=== PATIENT | female | born 1940 | race Caucasian/White ===

== ENCOUNTER 2018-02-21 19:58 | Inpatient (IN) | payer MEDICARE ==
[~2018-02-21] VITALS: Ht 152.4 cm; Wt 52.2 kg
--- NOTE | ~2018-02-21 | OP ---
PATIENT NAME: ERICA TYLER MEDICAL RECORD: [id number] :42 LOCATION:[id number] ADMISSION DATE:02/21/18 SURGEON: MARGA LOCK MD DATE OF OPERATION: 02/25/2018 PREOPERATIVE DIAGNOSIS: Gallstone pancreatitis. POSTOPERATIVE DIAGNOSES: 1. Gallstone pancreatitis with apparent filling defect in the distal common bile duct, likely a common bile duct stone. However, this cleared during the cholangiogram. 2. Hepatomegaly. PROCEDURE: 1. Laparoscopic cholecystectomy. 2. Intraoperative cholangiography without immediate surgeon interpretation. 3. A 14-gauge core needle liver biopsy. SURGEON: Marga Lock MD SENIOR STORAGE ADMINISTRATOR: None. BLOOD LOSS: Minimal. ANESTHESIA: General. COMPLICATIONS: None. The risks, possible complications, and alternatives to the procedure were explained to the patient. She elects to proceed. The discussion specifically included, but was not limited to, bleeding requiring an emergency reoperation, infection, intestinal injury as well as common bile duct injury. The radiologist called me with the cholangiogram report. There was an apparent distal common bile duct filling defect initially; however, with extra pressure applied during the cholangiogram this appeared to pop into the duodenum and then there was filling of the duodenum. I contacted Dr. Mera and it appears that an ERCP will not be indicated. The risks, possible complications, and alternatives to the procedure were explained to the patient. She elected to proceed. OPERATIVE COURSE: The patient was conveyed to the operating room electively on 02/25/2018. General anesthesia was induced by the anesthesia staff. The abdomen was sterilely prepped and draped. A small skin froy was accomplished in the left upper quadrant. A Veress needle was inserted through the skin froy into the peritoneal cavity. CO2 insufflation was begun. Once a sufficient pneumoperitoneum had been achieved, a 5-mm trocar was inserted through an incision in the right upper quadrant. Under direct internal vision utilizing a television camera, a 12-mm trocar was inserted through an incision at the umbilicus. Two more trocars were inserted. A 5-mm trocar was inserted in the epigastrium. Another 5-mm trocar was inserted far laterally in the right upper quadrant. During insertion of the Veress needle and all trocars, there appeared OPERATIVE REPORT [id number] ERICA TYLER to have been no injury to the bowels, any intraperitoneal or retroperitoneal structures. The indication for the liver biopsy was hepatomegaly. Under laparoscopic guidance, I percutaneously accessed the right upper quadrant utilizing an 14-gauge core needle liver biopsy device. Cores were obtained over the convexity of the liver. The biopsy sites were made hemostatic with electrocautery. I then advanced the cholangiogram trocar. I punctured the fundus of the gallbladder. I aspirated bile. I then injected dye. Static fluoroscopic images were obtained. These cholangiographic images are sent to the radiologist for interpretation. I withdrew the cholangiogram trocar. The gallbladder was grasped and retracted cephalad. The infundibulum was grasped and retracted laterally. Critical view of the triangle of Calot was visualized. Blunt dissection was begun on the triangle of Calot. One cystic artery and one cystic duct were identified. These were clipped multiply and divided between clips. The gallbladder was then excised from its bed and the liver. It was placed within an Endobag retrieval device and was withdrawn through the umbilical fascia defect. The 12-mm trocars were placed and the abdomen reinsufflated. I irrigated and aspirated in the right upper quadrant. There was no bleeding even at low pressure of 8. The Shakir-Lizeth suture closure device and 0 Vicryl sutures were used to close the umbilical fascia. All the trocars were removed and the abdomen desufflated. The incision at the umbilicus was closed with interrupted 4-0 Vicryl Rapide sutures. The other skin incisions were closed with interrupted intracuticular 3-0 Vicryls. Benzoin and Steri-Strips were applied. The patient was then extubated and conveyed to post-anesthesia care unit where she was in stable condition. TRANSINT:[id number] Voice Confirmation ID: [id number] DOCUMENT ID: [id number] MARGA LOCK MD at 1240 CC: TRISH RO MD, MAGDALENA HEAD MD and KEVIN MERA DO [id number] DICTATION DATE: 02/25/18 1021 TECHNICAL TRAINING COORDINATOR: 02/25/18 1155 DIS IN 02/26/18 [id number] [place] [address]
[2018-02-21] MEDS ORDERED: TRIAMTERENE-HCT1 TA1 PO (20:11)
[2018-02-21] MEDS ORDERED: PRILOSEC2.5 MG PO (20:11)
[2018-02-21] MEDS ORDERED: AMITRIPTYLINE100 MG PO (20:12)
[2018-02-21] MEDS ORDERED: VALIUM5 MG PO (20:12)
[2018-02-21] MEDS ORDERED: ED-SPAZ0.125 MG PO (20:13)
[2018-02-21] MEDS ORDERED: MULTIPLE VITAMI1 TA1 PO (20:13)
[2018-02-21] MEDS ORDERED: REQUIP0.5 MG PO (20:14)
[2018-02-21] MEDS ORDERED: COMPAZINE5 MG PO (20:14)
[2018-02-21] MEDS ORDERED: COLACE100 MG PO (20:15)
[2018-02-21] MEDS ORDERED: HYDROCODONE-APA1 TAB PO (20:15)
[2018-02-21 22:38] VITALS: BP 99/66
[2018-02-21 22:52] LABS: BASOPHILS 0.1 % (0-2); EOSINOPHILS 0 % (0-7); HEMATOCRIT 37.2 % (36.0-48.0); HEMOGLOBIN 12.8 g/dL (12-16); IMMATURE GRANULOCYTES 0.2 % (0-5); LYMPHOCYTES 6.7 % (15-50); MCH 31.9 pg (26.0-34.0); MCHC 34.4 g/dL (31.0-37.0); MCV 92.8 fL (80.0-100.0); MEAN PLATELET VOLUME 10.4 fL (7.4-10.4); MONOCYTES 6.1 % (2-11); NEUTROPHILS 86.9 % (40-80); PLATELET COUNT 230 10x3/uL (130-400); RBC 4.01 10x6/uL (4.00-5.40); RDW 13.3 % (11.5-14.5); WBC 12.7 10x3/uL (4.8-10.8)
[2018-02-21 22:52] LABS: APPEARANCE CLEAR (CLEAR); COLOR DK YELLOW (YELLOW); SPECIFIC GRAVITY 1.015 (1.005-1.020)
[2018-02-21 22:53] LABS: BILIRUBIN NEGATIVE (NEGATIVE); GLUCOSE NEGATIVE (NEGATIVE); KETONE NEGATIVE (NEGATIVE); NITRITE NEGATIVE (NEGATIVE); PROTEIN NEGATIVE (NEGATIVE)
[2018-02-21 23:04] LABS: ALBUMIN 2.9 g/dL (3.4-5.0); ANION GAP 10.8 mmol/L (8-16); BILIRUBIN - TOTAL 2.96 mg/dL (0.2-1.3); CALCIUM 8.5 mg/dL (8.5-10.1); CARBON DIOXIDE 29.9 mmol/L (21.0-32.0); CREATININE - SERUM 0.8 mg/dL (0.6-1.3); POTASSIUM - SERUM 3.7 mmol/L (3.5-5.1); PROTEIN - SERUM 6.2 g/dL (6.4-8.2)
[2018-02-22 03:10] VITALS: BP 95/48; BMI 22.5
[2018-02-22 04:00] VITALS: BP 92/56
[2018-02-22 07:45] VITALS: BP 98/53
[2018-02-22 10:49] VITALS: Ht 152.4 cm; Wt 52.2 kg
[2018-02-22 11:26] VITALS: BP 110/62
[2018-02-22 15:06] VITALS: BP 107/59
[2018-02-22 20:08] VITALS: BP 110/65
[2018-02-23 02:34] VITALS: BP 134/75
[2018-02-23 05:55] LABS: BASOPHILS 0.2 % (0-2); EOSINOPHILS 0.8 % (0-7); HEMATOCRIT 32.9 % (36.0-48.0); HEMOGLOBIN 11.2 g/dL (12-16); IMMATURE GRANULOCYTES 0.2 % (0-5); LYMPHOCYTES 25.4 % (15-50); MCH 31.5 pg (26.0-34.0); MCV 92.4 fL (80.0-100.0); MEAN PLATELET VOLUME 10.5 fL (7.4-10.4); MONOCYTES 8.5 % (2-11); NEUTROPHILS 64.9 % (40-80); RBC 3.56 10x6/uL (4.00-5.40); RDW 13.7 % (11.5-14.5)
[2018-02-23 06:21] LABS: ALBUMIN 2.3 g/dL (3.4-5.0); ALKALINE PHOSPHATASE 104 U/L (46-116); CALCIUM 7.9 mg/dL (8.5-10.1); CARBON DIOXIDE 27.5 mmol/L (21.0-32.0); CHLORIDE - SERUM 110 mmol/L (98-107); CREATININE - SERUM 0.6 mg/dL (0.6-1.3); GLUCOSE 123 mg/dL (74-106); LIPASE 99 U/L (73-393); PROTEIN - SERUM 5.3 g/dL (6.4-8.2); SODIUM 143 mmol/L (136-145); eGFR NON AFRICAN AMERICAN > 90 mL/min (90-120)
[2018-02-23 06:25] LABS: CALC OSMOLALITY 283 mosm/kg (275-300); POTASSIUM - SERUM 3.1 mmol/L (3.5-5.1); UREA NITROGEN 8 mg/dL (7-18)
[2018-02-23 06:26] LABS: ALT (SGPT) 135 U/L (10-68)
[2018-02-23 06:28] VITALS: BP 149/83
[2018-02-23 06:32] LABS: PLATELET COUNT 177 10x3/uL (130-400); WBC 4.8 10x3/uL (4.8-10.8)
[2018-02-23] MEDS ORDERED: NEURONTIN 300300 MG PO (08:28)
[2018-02-23 08:32] VITALS: BP 142/73
[2018-02-23 11:30] VITALS: BP 131/73
[2018-02-23 12:08] LABS: MAGNESIUM - SERUM 1.7 mg/dL (1.8-2.4)
[2018-02-23 16:51] VITALS: BP 135/74
[2018-02-23 19:42] VITALS: BP 134/79
[2018-02-24 00:54] VITALS: BP 128/80
[2018-02-24 04:00] VITALS: BP 128/79
[2018-02-24 05:30] LABS: BASOPHILS 0.5 % (0-2); EOSINOPHILS 1.6 % (0-7); HEMATOCRIT 32.5 % (36.0-48.0); HEMOGLOBIN 11.1 g/dL (12-16); IMMATURE GRANULOCYTES 0.3 % (0-5); LYMPHOCYTES 22.9 % (15-50); MCH 31.4 pg (26.0-34.0); MCHC 34.2 g/dL (31.0-37.0); MCV 92.1 fL (80.0-100.0); MEAN PLATELET VOLUME 10.8 fL (7.4-10.4); MONOCYTES 8.2 % (2-11); NEUTROPHILS 66.5 % (40-80); PLATELET COUNT 198 10x3/uL (130-400); RBC 3.53 10x6/uL (4.00-5.40); RDW 14.1 % (11.5-14.5)
[2018-02-24 05:31] LABS: WBC 6.5 10x3/uL (4.8-10.8)
[2018-02-24 06:00] LABS: ALBUMIN 2.3 g/dL (3.4-5.0); ALKALINE PHOSPHATASE 103 U/L (46-116); ALT (SGPT) 95 U/L (10-68); BILIRUBIN - TOTAL 0.99 mg/dL (0.2-1.3); CALC OSMOLALITY 282 mosm/kg (275-300); CALCIUM 7.8 mg/dL (8.5-10.1); CARBON DIOXIDE 24.4 mmol/L (21.0-32.0); CHLORIDE - SERUM 110 mmol/L (98-107); CREATININE - SERUM 0.6 mg/dL (0.6-1.3); GLUCOSE 108 mg/dL (74-106); LIPASE 120 U/L (73-393); POTASSIUM - SERUM 3.4 mmol/L (3.5-5.1); PROTEIN - SERUM 5.4 g/dL (6.4-8.2); SODIUM 142 mmol/L (136-145); UREA NITROGEN 9 mg/dL (7-18); eGFR NON AFRICAN AMERICAN > 90 mL/min (90-120)
[2018-02-24 08:45] VITALS: BP 132/79
[2018-02-24 12:36] VITALS: BP 139/82
[2018-02-24 16:36] VITALS: BP 134/74
[2018-02-24 20:23] VITALS: BP 121/70
[2018-02-25 04:00] VITALS: BP 126/66
[2018-02-25 07:26] LABS: BASOPHILS 0.3 % (0-2); EOSINOPHILS 2.1 % (0-7); HEMATOCRIT 33.6 % (36.0-48.0); HEMOGLOBIN 11.4 g/dL (12-16); IMMATURE GRANULOCYTES 0.2 % (0-5); LYMPHOCYTES 24.5 % (15-50); MCH 31.4 pg (26.0-34.0); MCHC 33.9 g/dL (31.0-37.0); MCV 92.6 fL (80.0-100.0); MEAN PLATELET VOLUME 10.9 fL (7.4-10.4); MONOCYTES 9.2 % (2-11); NEUTROPHILS 63.7 % (40-80); PLATELET COUNT 235 10x3/uL (130-400); RBC 3.63 10x6/uL (4.00-5.40); RDW 13.9 % (11.5-14.5); WBC 5.8 10x3/uL (4.8-10.8)
[2018-02-25 07:52] LABS: ALBUMIN 2.4 g/dL (3.4-5.0); ALKALINE PHOSPHATASE 102 U/L (46-116); BILIRUBIN - TOTAL 0.73 mg/dL (0.2-1.3); CALC OSMOLALITY 286 mosm/kg (275-300); CALCIUM 8.3 mg/dL (8.5-10.1); CARBON DIOXIDE 25.9 mmol/L (21.0-32.0); CHLORIDE - SERUM 110 mmol/L (98-107); CREATININE - SERUM 0.6 mg/dL (0.6-1.3); GLUCOSE 91 mg/dL (74-106); LIPASE 96 U/L (73-393); POTASSIUM - SERUM 3.5 mmol/L (3.5-5.1); PROTEIN - SERUM 5.7 g/dL (6.4-8.2); SODIUM 145 mmol/L (136-145); UREA NITROGEN 8 mg/dL (7-18); eGFR NON AFRICAN AMERICAN > 90 mL/min (90-120)
[2018-02-25 07:54] LABS: ALT (SGPT) 70 U/L (10-68)
[2018-02-25 11:09] VITALS: BP 127/70
[2018-02-25 15:45] VITALS: BP 128/74
[2018-02-25] MEDS ORDERED: AMBIEN10 MG PO (17:23)
[2018-02-25 20:00] VITALS: BP 138/75
[2018-02-26 04:00] VITALS: BP 136/78
[2018-02-26 05:40] LABS: BASOPHILS 0.2 % (0-2); EOSINOPHILS 1.6 % (0-7); HEMATOCRIT 31.9 % (36.0-48.0); HEMOGLOBIN 10.7 g/dL (12-16); IMMATURE GRANULOCYTES 0.4 % (0-5); LYMPHOCYTES 23.3 % (15-50); MCH 31.4 pg (26.0-34.0); MCHC 33.5 g/dL (31.0-37.0); MCV 93.5 fL (80.0-100.0); MEAN PLATELET VOLUME 10.4 fL (7.4-10.4); MONOCYTES 9.8 % (2-11); NEUTROPHILS 64.7 % (40-80); PLATELET COUNT 212 10x3/uL (130-400); RBC 3.41 10x6/uL (4.00-5.40); RDW 13.9 % (11.5-14.5); WBC 5.1 10x3/uL (4.8-10.8)
[2018-02-26 06:07] LABS: ALBUMIN 2.1 g/dL (3.4-5.0); ALKALINE PHOSPHATASE 135 U/L (46-116); ALT (SGPT) 68 U/L (10-68); BILIRUBIN - TOTAL 0.57 mg/dL (0.2-1.3); CALC OSMOLALITY 283 mosm/kg (275-300); CALCIUM 7.7 mg/dL (8.5-10.1); CARBON DIOXIDE 28.8 mmol/L (21.0-32.0); CHLORIDE - SERUM 110 mmol/L (98-107); CREATININE - SERUM 0.6 mg/dL (0.6-1.3); GLUCOSE 109 mg/dL (74-106); LIPASE 82 U/L (73-393); POTASSIUM - SERUM 3.5 mmol/L (3.5-5.1); PROTEIN - SERUM 5.1 g/dL (6.4-8.2); SODIUM 143 mmol/L (136-145); UREA NITROGEN 8 mg/dL (7-18); eGFR NON AFRICAN AMERICAN > 90 mL/min (90-120)
[2018-02-26 08:24] VITALS: BP 140/82
== END 2018-02-26 11:21 | disposition home or self-care (01) | DRG 418 ==
LOC: D.ER 19:58 → D.EDHOLD 23:26 → D.MS 23:26
PROVIDERS: Emergency Medicine; Family Medicine Adult Medicine; Internal Medicine Nephrology; Surgery
PROC: 0FB03ZX Excision of Liver, Percutaneous Approach, Diagnostic (ICD-10-PCS; 2018-02-25)
PROC: 0FT44ZZ Resection of Gallbladder, Percutaneous Endoscopic Approach (ICD-10-PCS; principal; 2018-02-25 08:00)
PROC: BF121ZZ Fluoroscopy of Gallbladder using Low Osmolar Contrast (ICD-10-PCS; 2018-02-25 08:00)
DX: K85.10 Biliary acute pancreatitis without necrosis or infection (principal); K83.0 Cholangitis; E83.42 Hypomagnesemia; E87.6 Hypokalemia; E83.39 Other disorders of phosphorus metabolism; R16.0 Hepatomegaly, not elsewhere classified